=== PATIENT | female | born 1970 | race Caucasian/White ===

== ENCOUNTER 2016-12-07 11:40 | Emergency (ER) | payer OTHER ==
[2016-12-07] MEDS ORDERED: 0.9 % SODIUM CHLORIDE 1,000 ML BAG IV ONE (11:54)
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
--- NOTE | 2016-12-13 09:41 | RADIOLOGY REPORT ---
EXAM: CERVICAL SPINE HISTORY: NECK PAIN. TECHNIQUE: Six views of the cervical spine were obtained. Comparison: None. FINDINGS: Straightening of the normal lordosis which may relate to patient positioning. Height and alignment is preserved. The atlantoaxial space is preserved. The lateral masses are not displaced. Minor multilevel degenerative change. IMPRESSION: NEGATIVE FOR ACUTE CERVICAL SPINE ABNORMALITY. JOB NUMBER: [id number] MTDD
== END 2016-12-07 13:22 | disposition home or self-care (01) ==
LOC: ER 11:40
DX: S16.1XXA Strain of muscle, fascia and tendon at neck level, initial encounter (principal); V46.5XXA Car driver injured in collision with other nonmotor vehicle in traffic accident, initial encounter; Y92.410 Unspecified street and highway as the place of occurrence of the external cause
CPT/HCPCS: 72050; 99283